=== PATIENT | female | born 1940 | race Caucasian/White ===

== ENCOUNTER 2018-04-08 20:20 | Emergency (ER) | payer MEDICARE ==
[2018-04-08 22:02] LABS: ABS Basophils 0.2 10^3/ul (0-0.2); ABS Eosinophils 0.1 10^3/ul (0-0.6); ABS Lymphocytes 1.8 10^3/ul (1.0-4.8); ABS Monocytes 1.4 10^3/ul (0-0.8); ABS Neutrophils 10.4 10^3/ul (1.5-7.7); ABS Nucleated RBC 0 10^3/ul; Eosinophil % 0.8 % (0-6); Hematocrit 31 % (35-47); Hemoglobin 10.2 g/dl (12.0-16.0); Lymphocyte % 12.9 % (25-47); Mean Corpuscular HGB Conc 33 g/dl (31-36); Mean Corpuscular Hemoglobin 28 pg (27-31); Mean Corpuscular Volume 84 fL (80-97); Mean Platelet Volume 6.6 um3 (7.4-10.4); Nucleated Red Blood Cells % 0; Platelet Count 676 10^3/ul (150-450); Red Blood Count 3.67 10^6/ul (4.00-5.40); Red Cell Distribution Width 14 % (10.5-15); White Blood Count 13.8 10^3/ul (3.5-10.8)
[2018-04-08] MEDS ORDERED: Ketorolac INJ* 30 MG/ML 1 ML VIAL IV PUSH ONE (22:16)
[2018-04-08] MEDS ORDERED: Ondansetron INJ* 2 MG/ML VIAL IV ONE (22:17)
[2018-04-08 22:21] LABS: EGFR Non-African American 15.4 (>60)
[2018-04-08 22:55] LABS: Urine Appearance Cloudy; Urine Blood 1+ (Negative); Urine Color Straw; Urine Ketones Negative (Negative); Urine Protein Negative (Negative); Urine Red Blood Cell Trace(0-2/hpf) (Absent); Urine Specific Gravity 1.005 (1.010-1.030); Urine Urobilinogen Negative (Negative); Urine White Blood Cell 3+(>20/hpf) (Absent)
[2018-04-08] MEDS ORDERED: Morphine VIAL* 4 MG/ML VIAL (1 ml vial) IV ONE ×2 (22:56→23:46)
[2018-04-08] MEDS ORDERED: NS 0.9% 1000 ML* 1,000 ML IV ONE (22:56)
[2018-04-08] MEDS ORDERED: cefTRIAXone(*) 1 GM in NS 0.9% 50 ML* 50 ML IVPB ONE (22:57)
[2018-04-08] MEDS ORDERED: Morphine INJ* 2 MG/ML 1 ML SYRINGE (TWO MG - NEW SYRINGE VERSION) IV ONE (23:00)
[2018-04-08] MEDS ORDERED: Morphine INJ* 2 MG/ML 1 ML SYRINGE (TWO MG - NEW SYRINGE VERSION) ONE (23:02)
--- NOTE | 2018-04-08 23:44 | ED ---
GI/ HPI - HPI Summary HPI Summary: 77-year-old female presents with right flank pain for the past week. She denies any injury. No fevers. She denies any saddle anesthesia or loss of bowel or bladder. States pain radiates from right flank down to her lower abdomen or pelvic region. She denies any dysuria, urgency, frequency. She admits to occasional nausea but denies any vomiting. She denies any diarrhea constipation. No hematuria. She denies any history of pyelonephritis or kidney stones. She denies any previous abdominal surgeries. She denies any chest pain or shortness of breath. - History of Current Complaint Chief Complaint: EDFlankPain Time Seen by Provider: 04/08/18 22:12 Stated Complaint: RT FLANK & ABD PAIN Pain Intensity: 10 - Allergy/Home Medications Allergies/Adverse Reactions: Allergies Allergy/AdvReac Type Severity Reaction Status Date / Time codeine Allergy Headache Verified 04/08/18 20:26 Home Medications: Home Medications Pravastatin (NF) [Pravachol (NF)] 40 mg PO DAILY 04/08/18 [History Confirmed ] Tiotropium CAP.INH* [Spiriva CAP.INH*] 1 cap.inh INH DAILY 04/08/18 [History Confirmed 04/08/18] PMH/Surg Hx/FS Hx/Imm Hx Endocrine/Hematology History: Denies: Hx Diabetes, Hx Thyroid Disease, Hx Anemia Cardiovascular History: Reports: Hx Coronary Artery Disease, Hx Hypertension, Other Cardiovascular Problems/Disorders - CAD Respiratory History: Reports: Hx Asthma - uses nebulizer tx/mdi as needed, Hx Chronic Obstructive Pulmonary Disease (COPD) GI History: Denies: Hx Jaundice, Hx Ulcer Musculoskeletal History: Reports: Hx Arthritis - GENERALIZED ALL OVER, Other Musculoskeletal History - LEFT LEG BONE PAIN FOR ABOUT TWO WEEKS NOW Denies: Hx Osteoporosis Comment Only: Hx Rheumatoid Arthritis - OA Sensory History: Reports: Hx Contacts or Glasses - glasses Denies: Hx Cataracts, Hx Hearing Aid Opthamlomology History: Reports: Hx Contacts or Glasses - glasses Denies: Hx Cataracts Neurological History: Reports: Hx Migraine - ON MEDS LAST ON LAST WEEK FOR 2 DAYS - Cancer History Hx Chemotherapy: No Hx Radiation Therapy: No - Surgical History Surgery Procedure, Year, and Place: LEFT KNEE REPLACEMENT 2014. lipoma removed from left arm and right leg 2017. appendectomy. gall bladder removed. hysterectomy Hx Anesthesia Reactions: Yes - very sick to stomach with anesthesia Infectious Disease History: No Infectious Disease History: Denies: Hx Hepatitis, Hx Human Immunodeficiency Virus (HIV), Traveled Outside the [place] in Last 30 Days - Family History Known Family History: Positive: Hypertension - Social History Alcohol Use: Occasionally Substance Use Type: Reports: None Smoking Status (MU): Former Smoker Amount Used/How Often: 30 years 2 ppd Review of Systems Negative: Fever Negative: Chest Pain Negative: Shortness Of Breath Positive: Abdominal Pain, Vomiting, Nausea. Negative: Diarrhea Positive: flank pain All Other Systems Reviewed And Are Negative: Yes Physical Exam Triage Information Reviewed: Yes Vital Signs On Initial Exam: Initial Vitals Temp Pulse Resp BP Pulse Ox 99.0 F 110 16 158/68 97 04/08/18 20:23 04/08/18 20:23 04/08/18 20:23 04/08/18 20:23 04/08/18 20:23 Vital Signs Reviewed: Yes Appearance: Positive: Well-Appearing Skin: Positive: Warm, Dry Head/Face: Positive: Normal Head/Face Inspection Eyes: Positive: Normal, Conjunctiva Clear ENT: Positive: Pharynx normal Respiratory/Lung Sounds: Positive: Clear to Auscultation, Breath Sounds Present Cardiovascular: Positive: Normal, RRR Abdomen Description: Positive: Soft, CVA Tenderness (R), Other: - tenderness right side abd Bowel Sounds: Positive: Present Musculoskeletal: Positive: Normal Neurological: Positive: Normal Psychiatric: Positive: Normal Diagnostics - Vital Signs Vital Signs Temp Pulse Resp BP Pulse Ox 04/08/18 23:11 16 04/08/18 20:23 99.0 F 110 16 158/68 97 - Laboratory Lab Results: Lab Results 04/08/18 04/08/18 04/08/18 Range/Units 21:46 21:46 21:46 WBC 13.8 H (3.5-10.8) 10^3/ul RBC 3.67 L (4.00-5.40) 10^6/ul Hgb 10.2 L (12.0-16.0) g/dl Hct 31 L (35-47) % MCV 84 (80-97) fL MCH 28 (27-31) pg MCHC 33 (31-36) g/dl RDW 14 (10.5-15) % Plt Count 676 H (150-450) 10^3/ul MPV 6.6 L (7.4-10.4) um3 Neut % (Auto) 75.2 (38-83) % Lymph % (Auto) 12.9 L (25-47) % Graves % (Auto) 9.8 H (0-7) % Eos % (Auto) 0.8 (0-6) % Baso % (Auto) 1.3 (0-2) % Absolute Neuts (auto) 10.4 H (1.5-7.7) 10^3/ul Absolute Lymphs (auto) 1.8 (1.0-4.8) 10^3/ul Absolute Monos (auto) 1.4 H (0-0.8) 10^3/ul Absolute Eos (auto) 0.1 (0-0.6) 10^3/ul Absolute Basos (auto) 0.2 (0-0.2) 10^3/ul Absolute Nucleated RBC 0 10^3/ul Nucleated RBC % 0 Sodium 134 L (135-145) mmol/L Potassium 4.5 (3.5-5.0) mmol/L Chloride 99 L (101-111) mmol/L Carbon Dioxide 24 (22-32) mmol/L Anion Gap 11 (2-11) mmol/L BUN 29 H (6-24) mg/dL Creatinine 2.95 H (0.51-0.95) mg/dL Est GFR ( Amer) 18.7 (>60) Est GFR (Non-Af Amer) 15.4 (>60) BUN/Creatinine Ratio 9.8 (8-20) Glucose 120 H (70-100) mg/dL Lactic Acid 1.5 (0.5-2.0) mmol/L Calcium 9.5 (8.6-10.3) mg/dL Total Bilirubin 0.30 (0.2-1.0) mg/dL AST 9 L (13-39) U/L ALT 18 (7-52) U/L Alkaline Phosphatase 101 (34-104) U/L C-Reactive Protein 100.15 H (<8.01) mg/L Total Protein 7.3 (6.4-8.9) g/dL Albumin 3.8 (3.2-5.2) g/dL Globulin 3.5 (2-4) g/dL Albumin/Globulin Ratio 1.1 (1-3) Lipase 69 (11.0-82.0) U/L Urine Color Urine Appearance Urine pH (5-9) Ur Specific [place] (1.010-1.030) Urine Protein (Negative) Urine Ketones (Negative) Urine Blood (Negative) Urine Nitrate (Negative) Urine Bilirubin (Negative) Urine Urobilinogen (Negative) Ur Leukocyte Esterase (Negative) Urine WBC (Auto) (Absent) Urine RBC (Auto) (Absent) Ur Squamous Epith Cells (Absent) Urine Bacteria (Absent) Urine Glucose (Negative) 04/08/18 Range/Units 22:18 WBC (3.5-10.8) 10^3/ul RBC (4.00-5.40) 10^6/ul Hgb (12.0-16.0) g/dl Hct (35-47) % MCV (80-97) fL MCH (27-31) pg MCHC (31-36) g/dl RDW (10.5-15) % Plt Count (150-450) 10^3/ul MPV (7.4-10.4) um3 Neut % (Auto) (38-83) % Lymph % (Auto) (25-47) % Graves % (Auto) (0-7) % Eos % (Auto) (0-6) % Baso % (Auto) (0-2) % Absolute Neuts (auto) (1.5-7.7) 10^3/ul Absolute Lymphs (auto) (1.0-4.8) 10^3/ul Absolute Monos (auto) (0-0.8) 10^3/ul Absolute Eos (auto) (0-0.6) 10^3/ul Absolute Basos (auto) (0-0.2) 10^3/ul Absolute Nucleated RBC 10^3/ul Nucleated RBC % Sodium (135-145) mmol/L Potassium (3.5-5.0) mmol/L Chloride (101-111) mmol/L Carbon Dioxide (22-32) mmol/L Anion Gap (2-11) mmol/L BUN (6-24) mg/dL Creatinine (0.51-0.95) mg/dL Est GFR ( Amer) (>60) Est GFR (Non-Af Amer) (>60) BUN/Creatinine Ratio (8-20) Glucose (70-100) mg/dL Lactic Acid (0.5-2.0) mmol/L Calcium (8.6-10.3) mg/dL Total Bilirubin (0.2-1.0) mg/dL AST (13-39) U/L ALT (7-52) U/L Alkaline Phosphatase (34-104) U/L C-Reactive Protein (<8.01) mg/L Total Protein (6.4-8.9) g/dL Albumin (3.2-5.2) g/dL Globulin (2-4) g/dL Albumin/Globulin Ratio (1-3) Lipase (11.0-82.0) U/L Urine Color Straw Urine Appearance Cloudy Urine pH 5.0 (5-9) Ur Specific [place] 1.005 L (1.010-1.030) Urine Protein Negative (Negative) Urine Ketones Negative (Negative) Urine Blood 1+ A (Negative) Urine Nitrate Negative (Negative) Urine Bilirubin Negative (Negative) Urine Urobilinogen Negative (Negative) Ur Leukocyte Esterase 3+ A (Negative) Urine WBC (Auto) 3+(>20/hpf) A (Absent) Urine RBC (Auto) Trace(0-2/hpf) (Absent) Ur Squamous Epith Cells Present A (Absent) Urine Bacteria 1+ A (Absent) Urine Glucose Negative (Negative) Result Diagrams: 04/08/18 21:46 04/08/18 21:46 Lab Statement: Any lab studies that have been ordered have been reviewed, and results considered in the medical decision making process. - CT abd CT Interpretation: Positive (See Comments) - Minimal right hydronephrosis. no obstructive calculi CT Interpretation Completed By: Radiologist Re-Evaluation - Re-Evaluation First Eval Re-Evaluation Time: 00:45 Change: Improved Comment: feeling better after pain medication GIGU Course/Dx - Course Course Of Treatment: 77-year-old female presents with right flank pain for the past week. She denies any injury. No fevers. She denies any saddle anesthesia or loss of bowel or bladder. States pain radiates from right flank down to her lower abdomen or pelvic region. She denies any dysuria, urgency, frequency. She admits to occasional nausea but denies any vomiting. She denies any diarrhea constipation. No hematuria. She denies any history of pyelonephritis or kidney stones. She denies any previous abdominal surgeries. She denies any chest pain or shortness of breath. On exam tenderness of right flank. Right-sided abdominal tenderness. CT shows hydronephrosis. Urine shows uti. Lactic normal. wbc 14. vitals stable does not appear septic. cr and bun elevated compared to previous 2 years ago. gave some fluids. Discussed with patient and patient agrees will treat this outpatient at this time with augmentin. discussed if develops fevers or feels worst to return. will have follow up with primary about elevated Cr. placed on augmentin as can give with her Cr Cl. patient understand and agrees with plan. - Diagnoses Differential Diagnoses - Female: Pyelonephritis, Urinary Tract Infection, Ureteral Calculi Provider Diagnoses: Pyelonephritis Discharge - Sign-Out/Discharge Documenting (check all that apply): Patient Departure - Discharge Plan Condition: Good Disposition: HOME Prescriptions: Amoxicillin/Clavulanate TAB* [Augmentin TAB 500 mg*] 500 mg PO BID #20 tab Ondansetron ODT TAB* [Zofran 4 MG Odt TAB*] 4 mg PO Q6H PRN #8 tab.odt PRN Reason: Nausea oxyCODONE TAB* [Roxycodone TAB 5 mg*] 5 mg PO Q6H PRN #12 tab MDD 4 PRN Reason: Pain Patient Education Materials: Kidney Infection (ED) Referrals: Tee Toussaint MD [Primary Care Provider] - Additional Instructions: Take antibiotic twice a day for 10 days starting tonight drink plenty of water Take Tylenol every 6 hours as needed for pain, use oxycodone for extreme pain every 6 hours follow up with primary within 5 days Return to ED if develop vomiting, fever, or any new or worsening symptoms - Billing Disposition and Condition Condition: GOOD Disposition: Home
[2018-04-08] MEDS ORDERED: Morphine INJ* 2 MG/ML 1 ML CARPUJECT IV ONE (23:50)
[2018-04-09] MEDS ORDERED: O ndansetron ODT 4MG 2TAB PRPK 4 MG PAK PO ONE (01:02)
[2018-04-09 01:10] VITALS: BP 123/86
--- NOTE | 2018-04-09 07:48 | RAD ---
INDICATION: Right flank pain COMPARISON: None TECHNIQUE: Noncontrast axial source images were acquired from the level hemidiaphragms to the symphysis pubis as part of CT imaging for renal stone. Lung bases: The lung bases are clear. Liver: The liver is normal in size. Noncontrast imaging shows no evidence of a hepatic mass or ductal dilatation. Gallbladder: Cholecystectomy. Spleen: The spleen is normal in size. The noncontrast CT appearance is normal. Pancreas: Noncontrast imaging shows no pancreatic mass or ductal dilitation. Adrenal glands: No masses are identified. Kidneys/Bladder: There is a nonobstructive 2 mm upper pole left renal calculus. There is mild atrophy of left kidney. On the right there is minor right-sided hydronephrosis with perinephric stranding there is no CT evidence of right-sided urolithiasis. Adenopathy: There is no evidence of intraperitoneal or retroperitoneal adenopathy. Evaluation is limited without oral contrast. Fluid collections: There are no free or localized fluid collections. Vessels: The aorta and iliac vessels are normal in caliber. There are no significant atherosclerotic changes. The IVC appears normal Pelvic organs: There is hysterectomy. There is no adnexal mass GI tract: Evaluation of the bowel is limited without oral contrast. The stomach, small bowel, and lower GI tract appear grossly normal. There are no obstructive findings. There is no periappendiceal inflammatory change.. Soft tissues: No soft tissue abnormalities of the extraperitoneal abdomen or pelvis are identified. Osseous structures: There are no acute osseous findings. IMPRESSION: 1. Mild atrophy left kidney with no obstructive left-sided nephrolithiasis. 2. Mild right-sided hydronephrosis with perinephric stranding without identifiable right-sided urolithiasis. Consider recent passage of calculus versus infection. 3. Cystectomy. Hysterectomy.
--- NOTE | 2018-04-12 11:05 | PN ---
Progress Note - Progress Note Date of Service: 04/08/18 Note: Pt. was seen in ED 04/12/18 and dx with pyelonephritis. She was placed on Augmentin and dc home. Final urine culture today is growing e. coli resistant to PNC. I called and spoke with pt. today at 1100. She states that her pain is getting worse and she feels very weak today. Pt. notes she has had very poor oral intake. Advised pt. if symptoms are worsening she should return to ER for re-eval. and possible IV antibx and admission. Pt. states she will return to ER.
== END 2018-04-09 01:09 | disposition home or self-care (01) ==
LOC: ED 20:20
DX: N10 Acute pyelonephritis (principal); B96.20 Unspecified Escherichia coli [E. coli] as the cause of diseases classified elsewhere; Z16.11 Resistance to penicillins; J44.9 Chronic obstructive pulmonary disease, unspecified; G43.909 Migraine, unspecified, not intractable, without status migrainosus; Z88.5 Allergy status to narcotic agent; Z96.652 Presence of left artificial knee joint; Z90.710 Acquired absence of both cervix and uterus; Z90.49 Acquired absence of other specified parts of digestive tract; Z82.49 Family history of ischemic heart disease and other diseases of the circulatory system; Z87.891 Personal history of nicotine dependence
CPT/HCPCS: 36415; 74176; 80053; 81003; 81015; 83605; 83690; 85025; 86140; 87077; 87086; 87186; 96365; 96375; 96376; 99282; J0696; J1885; J2270; J2405

== ENCOUNTER 2018-04-12 12:15 | Inpatient (IN) | payer MEDICARE ==
[2018-04-12] MEDS ORDERED: Ondansetron INJ* 2 MG/ML VIAL IV ONE (12:33)
[2018-04-12] MEDS ORDERED: Ketorolac INJ* 30 MG/ML 1 ML VIAL IV ONE (12:33)
[2018-04-12] MEDS ORDERED: cefTRIAXone(*) 1 GM in NS 0.9% 50 ML* 50 ML IVPB ONE (12:33)
[2018-04-12] MEDS ORDERED: NS 0.9% 1000 ML* 1,000 ML IV ONE (12:33)
[2018-04-12] MEDS ORDERED: Ciprofloxacin 400MG IVPREMIX(* 400 MG/200 ML BAG IVPB ONE (12:36)
--- NOTE | 2018-04-12 12:40 | ED ---
GI/ HPI - HPI Summary HPI Summary: This is suzi Hernandez documenting for attending Artis Terry MD. Patient is a 77 y/o F w/ c/o lower back pain. Patient was here four days ago for the same pain and given medication. Before the initial visit, pain had been present for a week. On triage, it is noted that the patient states she received a call from the ED today to return as she was given the wrong medications. In the room, she notes that the prescribed medications have not helped and the pain medications she was given cause migraines. She reports lower back pain is worse than previously and rates it 10/10. She also notes fevers, chills, N/V, loss of appetite, and increased frequency of urination. Patient denies abdominal pain, diarrhea, and dysuria. On triage, nothing is reported to aggravate/alleviate Sx. Home medications and allergies reviewed. - History of Current Complaint Chief Complaint: EDUrogenitalProblems Time Seen by Provider: 04/12/18 12:28 Stated Complaint: RE-CHECK UTI Hx Obtained From: Patient Onset/Duration: Started Weeks Ago - last week, Worse Since Timing: Constant Severity: Moderate Current Severity: Severe Pain Intensity: 10 Location of Pain: Other - lower back Associated Signs and Symptoms: Positive: Back Pain - lower, Nausea, Vomiting, Fever, Change in Appetite - decreased appetite, Chills, Other: - higher frequency of urination. Negative: Diarrhea, Dysuria, Abdominal Pain Aggravating Factor(s): Nothing Alleviating Factor(s): Nothing - Allergy/Home Medications Allergies/Adverse Reactions: Allergies Allergy/AdvReac Type Severity Reaction Status Date / Time codeine Allergy Headache Verified 04/12/18 12:23 PMH/Surg Hx/FS Hx/Imm Hx Endocrine/Hematology History: Denies: Hx Diabetes, Hx Thyroid Disease, Hx Anemia Cardiovascular History: Reports: Hx Coronary Artery Disease, Hx Hypertension, Other Cardiovascular Problems/Disorders - CAD Respiratory History: Reports: Hx Asthma - uses nebulizer tx/mdi as needed, Hx Chronic Obstructive Pulmonary Disease (COPD) GI History: Denies: Hx Jaundice, Hx Ulcer Musculoskeletal History: Reports: Hx Arthritis - GENERALIZED ALL OVER, Hx Rheumatoid Arthritis - OA, Other Musculoskeletal History - LEFT LEG BONE PAIN FOR ABOUT TWO WEEKS NOW Denies: Hx Osteoporosis Sensory History: Reports: Hx Contacts or Glasses - glasses Denies: Hx Cataracts, Hx Hearing Aid Opthamlomology History: Reports: Hx Contacts or Glasses - glasses Denies: Hx Cataracts Neurological History: Reports: Hx Migraine - ON MEDS LAST ON LAST WEEK FOR 2 DAYS - Cancer History Hx Chemotherapy: No Hx Radiation Therapy: No - Surgical History Surgery Procedure, Year, and Place: LEFT KNEE REPLACEMENT 2015. lipoma removed from left arm and right leg 2017. appendectomy. gall bladder removed. hysterectomy Hx Anesthesia Reactions: Yes - very sick to stomach with anesthesia Infectious Disease History: Yes Infectious Disease History: Denies: Hx Hepatitis, Hx Human Immunodeficiency Virus (HIV), Traveled Outside the [place] in Last 30 Days - Family History Known Family History: Negative: Blood Disorder - Social History Alcohol Use: Occasionally Substance Use Type: Reports: None Smoking Status (MU): Former Smoker Amount Used/How Often: 30 years 2 ppd Review of Systems Positive: Fever, Chills Positive: Vomiting, Nausea, Other - decreased appetite . Negative: Abdominal Pain, Diarrhea Positive: frequency - increased frequency of urination . Negative: dysuria Positive: Other - lower back pain All Other Systems Reviewed And Are Negative: Yes Physical Exam - Summary Physical Exam Summary: VITAL SIGNS: Reviewed. GENERAL: Patient is a well-developed and nourished female who is lying comfortable in the stretcher. Patient is not in any acute respiratory distress. HEAD AND FACE: No signs of trauma. No ecchymosis, hematomas or skull depressions. No sinus tenderness. EYES: PERRLA, EOMI x 2, No injected conjunctiva, no nystagmus. EARS: Hearing grossly intact. Ear canals and tympanic membranes are within normal limits. MOUTH: Oropharynx within normal limits. NECK: Supple, trachea is midline, no adenopathy, no JVD, no carotid bruit, no c- spine tenderness, neck with full ROM. CHEST: Symmetric, no tenderness at palpation LUNGS: Clear to auscultation bilaterally. No wheezing or crackles. CVS: Regular rate and rhythm, S1 and S2 present, no murmurs or gallops appreciated. ABDOMEN: Soft, non-tender. No signs of distention. No rebound no guarding, and no masses palpated. Bowel sounds are normal. MUSCULOSKELETAL: Bilateral CVA tenderness; all else normal. EXTREMITIES: FROM in all major joints, no edema, no cyanosis or clubbing. NEURO: Alert and oriented x 3. No acute neurological deficits. Speech is normal and follows commands. SKIN: Dry and warm Triage Information Reviewed: Yes Vital Signs On Initial Exam: Initial Vitals Temp Pulse Resp BP Pulse Ox 97 F 82 18 144/88 99 04/12/18 12:19 04/12/18 12:19 04/12/18 12:19 04/12/18 12:19 04/12/18 12:19 Vital Signs Reviewed: Yes Diagnostics - Vital Signs Vital Signs Temp Pulse Resp BP Pulse Ox 04/12/18 12:19 97 F 82 18 144/88 99 - Laboratory Result Diagrams: 04/12/18 13:05 04/12/18 13:05 Lab Statement: Any lab studies that have been ordered have been reviewed, and results considered in the medical decision making process. Re-Evaluation - Re-Evaluation First Eval Re-Evaluation Time: 13:44 Change: Improved Comment: Patient is feeling better. Discussed findings and plan for admission to [facility] for further workup. Patient is agreeable with the plan. GIGU Course/Dx - Course Assessment/Plan: This patient is a 77-year-old female who presents to the emergency department with a chief complaint of worsening lower back pain, nausea , intermittent fevers. The patient was diagnosed on April 08 with pyelonephritis for which the patient was given Augmentin. She reports that she is taking his medications however the symptoms worsen. Abdominopelvic CT done on 04/08 18 impression: Mild atrophy of the left kidney with no obstructing left- sided nephrolithiasis. Mild right-sided hydronephrosis with perinephric stranding without identifiable right-sided urolithiasis. Consider recent passage of calculus versus infection. Cystectomy. Hysterectomy. Blood test results shows normocytic normochromic anemia with a hemoglobin of 9.6 and hematocrit of 29. Platelet count is 689. Sodium of 134, be on a 26, creatinine 3.01 which he has worsened since April 08. CRP is 62.6. Initially in the emergency department the patient was given IV fluids, the patient was given Rocephin. I did give 1 dose of Toradol before, I knew that the patient had renal failure. Therefore I will increase the IV fluids at this time. I discussed the case with Dr. Driscoll from urology and he recommends for the patient to get an ultrasound to assess kidneys and the urethral jets. I discussed the case with and Dr. Toussaint, care physician and he recommends for the patient to be admitted to hospitalist services. The patient is feeling better, I discussed my physical exam and findings with Dr. Goldman we will admit the patient to her services for further workup and management. - Diagnoses Provider Diagnoses: Pyelonephritis, Acute on chronic renal failure - Physician Notifications Discussed Care Of Patient With: Junie Goldman Time Discussed With Above Provider: 14:14 Instructed by Provider To: Other - Dr. Goldman was consulted at 14:14 with regards to the patient's case. She agrees to accept patient to the hospital. 14: 26 -- Dr. Terry discussed the patient's case with Dr. Driscoll. He recommends for the patient to get an ultrasound to assess kidneys and the urethral jets. 14 :45 -- Dr. Toussaint was consulted, recommends admission as well. Discharge - Sign-Out/Discharge Documenting (check all that apply): Patient Departure - Discharge Plan Condition: Fair Disposition: ADMITTED TO [facility] Referrals: Tee Toussaint MD [Primary Care Provider] -
[2018-04-12 13:20] LABS: ABS Basophils 0.1 10^3/ul (0-0.2); ABS Eosinophils 0.1 10^3/ul (0-0.6); ABS Lymphocytes 1.5 10^3/ul (1.0-4.8); ABS Monocytes 0.9 10^3/ul (0-0.8); ABS Neutrophils 5.4 10^3/ul (1.5-7.7); ABS Nucleated RBC 0 10^3/ul; Eosinophil % 0.8 % (0-6); Hematocrit 29 % (35-47); Hemoglobin 9.6 g/dl (12.0-16.0); Lymphocyte % 18.5 % (25-47); Mean Corpuscular HGB Conc 34 g/dl (31-36); Mean Corpuscular Hemoglobin 28 pg (27-31); Mean Corpuscular Volume 83 fL (80-97); Mean Platelet Volume 6.8 um3 (7.4-10.4); Nucleated Red Blood Cells % 0; Platelet Count 689 10^3/ul (150-450); Red Blood Count 3.44 10^6/ul (4.00-5.40); Red Cell Distribution Width 14 % (10.5-15); White Blood Count 7.9 10^3/ul (3.5-10.8)
[2018-04-12 13:46] LABS: EGFR Non-African American 15.1 (>60)
[2018-04-12 14:52] LABS: Urine Appearance Cloudy; Urine Blood 1+ (Negative); Urine Color Yellow; Urine Ketones Negative (Negative); Urine Protein 2+(100 mg/dL) (Negative); Urine Red Blood Cell Trace(0-2/hpf) (Absent); Urine Specific Gravity 1.008 (1.010-1.030); Urine Urobilinogen Negative (Negative); Urine White Blood Cell 2+(11-20/hpf) (Absent)
[2018-04-12] MEDS ORDERED: Ondansetron INJ* 2 MG/ML VIAL IV PRN (16:42)
[2018-04-12] MEDS ORDERED: Acetaminophen TAB* 325 MG PO PRN (16:42)
[2018-04-12] MEDS ORDERED: Ondansetron ODT TAB* 4 MG PO PRN (16:44)
[2018-04-12] MEDS ORDERED: oxyCODONE/Acetamin 5/325 MG* TAB PO PRN (16:49)
--- NOTE | 2018-04-12 17:08 | RAD ---
INDICATION: Hydronephrosis and pyelonephritis. COMPARISON: Comparison is made with a prior CT of the abdomen and pelvis from April 08, 2018. TECHNIQUE: Multiple real-time images of the kidneys were obtained. FINDINGS: The right kidney is normal in shape and echogenicity. The left kidney is small in size and increased in echogenicity with diffuse thinning of the cortex. The right kidney measured 10.1 x 4.0 x 4.9 cm and the left kidney measured 8.2 x 3.5 x 3.4 cm. No significant focal abnormality or hydronephrosis is seen. There were bilateral ureteral vesicle jets. IMPRESSION: 1. NO EVIDENCE FOR HYDRONEPHROSIS. 2. SMALL LEFT KIDNEY.
[2018-04-12] MEDS ORDERED: Albuterol 2.5 MG/3 ML NEB.SOL* (0.083%) INH PRN (17:27)
[2018-04-12] MEDS: Verapamil SR TAB* 240 MG PO SCH (17:55)
[2018-04-12] MEDS: cefTRIAXone(*) 1 GM in NS 0.9% 50 ML* 50 ML IVPB SCH (18:01)
[2018-04-12] MEDS: Amitriptyline TAB* 50 MG PO SCH (20:22)
[2018-04-12] MEDS: NS 0.9% 1000 ML* 1,000 ML IV SCH (20:35)
--- NOTE | 2018-04-12 21:44 | HP ---
CC: Dr. Tee Toussaint * ADMISSION HISTORY AND PHYSICAL: DATE OF ADMISSION: 04/12/18 PRIMARY CARE PROVIDER: Dr. Tee Toussaint. MY ATTENDING WHILE IN THE HOSPITAL: Dr. Junie Goldman.* (DICTATED BY TREY RAMÍREZ) CHIEF COMPLAINT: Right-sided flank pain x5 days. HISTORY OF PRESENT ILLNESS: Ms. Guzman is a 77-year-old female with past medical history significant for hypertension, hyperlipidemia, asthma, chronic kidney disease, and urinary tract infection 2 years ago requiring hospitalization, who presents to the emergency department on 04/08/18, with complaints of right-sided flank pain. The patient at that time had a urinalysis consistent with urinary tract infection and was started on Augmentin. The patient had a CT scan, which showed right-sided hydronephrosis without identifiable stone with perinephric stranding with concern for infection or new or passed stone. The patient was started on Augmentin and discharged from the emergency department. The patient since that time has had persistent pain in her right side with very poor appetite, objective fevers, and rigors along with nausea without vomiting. The patient was given a prescription for oxycodone, which she took and has a poor reaction to that with headache and nausea. The patient states that the pain in her side has subsided significantly at the time of evaluation, but before today it was 10/10 and radiated from her right back down into her groin and leg on that side. The patient has been drinking what she describes as plenty of water, but cannot quantify this. The patient also has been drinking cranberry juice. The patient has not had very much to eat in general. The patient has no UTIs between the time she was admitted in 2014 and now. The patient is not on any prophylactic therapy. The patient went to see her primary care doctor, Dr. Toussaint and was referred to Dr. Driscoll of Urology on Sunday and had an appointment for Sunday. The patient has no history of kidney stones. The patient has had no chest pain, shortness of breath, abdominal pain, diarrhea, jaundice. The patient previously took Percocet for her pain, which she had leftover from her knee surgery, which she states helped very much, but had no relief from the oxycodone. The patient's pain is currently well controlled in the emergency department. The patient has had no other symptoms of UTI such as dysuria, hematuria, pyuria, frequency, or retention. The patient in the emergency department was previously found to have a creatinine of 2.95 on 04/08/18, which has increased to 3.01 on 04/12/18. The patient's baseline creatinine appears to be around 1.6. The patient was being treated with Augmentin and her urine culture from 04/08/18 showed resistance to ampicillin and an ALEXIS to Augmentin of 8, which is borderline resistant for systemic infections. Due to this, the patient was instructed to return to the emergency department. The patient had a renal ultrasound, which showed bilateral ureteral jets, no hydronephrosis, but a small left kidney and we were asked to admit to the hospital for treatment of pyelonephritis as well as investigation in the patient's acute-on chronic kidney disease. PAST MEDICAL HISTORY: Hypertension, hyperlipidemia, asthma, migraine disorder, back pain due to arthritis, previous urinary tract infection, chronic kidney disease, baseline stage 3B. PAST SURGICAL HISTORY: Hand surgery x3, hysterectomy, oophorectomy, cholecystectomy, knee replacement, multiple knee surgeries bilaterally. MEDICATIONS: 1. Lisinopril 20 mg p.o. daily. 2. Elavil 50 mg p.o. daily. 3. Verapamil 240 mg p.o. daily. 4. Spiriva 18 mcg inhalation once daily. 5. Pravastatin 40 mg p.o. daily. 6. Flovent as needed, 1 puff inhalation 2 to 3 times a day. Medications from previous ER visit: 1. Oxycodone 5 mg p.o. q.6 hours as needed. 2. Zofran 4 mg p.o. q.6 hours as needed. 3. Augmentin 500 mg p.o. b.i.d. ALLERGIES: CODEINE. FAMILY HISTORY: The patient's mother and father both of CAD. The patient recently had a brother who of CA and had several other brothers of heart disease. The patient has strong history of hypertension in her family. SOCIAL HISTORY: The patient has over a 100 pack-year history of smoking and has recently been smoking intermittently only with drinking and recently began to drink more alcohol, but has recently cut back on that significantly as well. The patient denies any illicit drug use. 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 The patient is and has 2 children, both of whom are healthy. The patient would like her surrogate decision makers to be her , Oscar Guzman and her [id number], Desiree Quintanilla. REVIEW OF SYSTEMS: A 14-point review of systems was reviewed and is negative except as above in the HPI. PHYSICAL EXAMINATION GENERAL: The patient is a 77-year-old female, who appears stated age and sitting comfortably in bed. VITAL SIGNS: At the time of evaluation, temperature 97.0, pulse rate 72, respiratory rate 18, oxygen saturation 98% on room air, blood pressure 146/74. HEENT: Head normocephalic, atraumatic. Sclerae anicteric. No conjunctival injection. Nasal mucosa moist. Oral mucosa moist. No pharyngeal erythema, discharge, or exudate. NECK: Supple, nontender. No lymphadenopathy. No carotid bruits auscultated. No JVD. RESPIRATORY: Clear to auscultation bilaterally. No wheezes, rales, or rhonchi. Good air exchange bilaterally. CARDIAC: Regular rate and rhythm. No clicks, murmurs, gallops, or rubs. Pulses are 2+ in the bilateral dorsalis pedis, posterior tibialis, and radial areas. No bilateral lower extremity edema or calf tenderness noted. ABDOMEN: Soft, nontender, nondistended. Bowel sounds present and normoactive in all 4 quadrants. No hepatosplenomegaly. No abdominal bruits auscultated. No hepatojugular reflux. GENITOURINARY: No suprapubic or CVA tenderness. NEUROLOGIC: Cranial nerves II through XII intact. No focal deficits. Alert and oriented x3. PSYCHIATRIC: Pleasant and cooperative. SKIN: Clean, dry, intact. No rash. LABORATORY DATA: White blood cell count 7.9, hemoglobin 9.6, hematocrit 29, platelet count 689. Sodium 134, potassium 4.7, chloride 103, carbon dioxide 20 , anion gap 11, BUN 26, creatinine 3.01, glucose 100, lactic acid 1.2, calcium 9.1. Bilirubin 0.3, AST 15, ALT 19, alkaline phosphatase 99. CRP is 62.64, procalcitonin 0.2, total protein 7.1, albumin 3.6, globulin 3.5, lipase 32. Urine is yellow, cloudy, pH of 5.0, specific gravity 1.008, 2+ protein, negative ketones, 1+ blood, negative nitrite, 2+ leukocyte esterase, 2+ white blood cells, urine red blood cell count trace, urine squamous epithelial cells present, bacteria and glucose are absent. DIAGNOSTIC STUDIES: Renal ultrasound read as no evidence for hydronephrosis, small left kidney, bilateral ureterovesical jets. ASSESSMENT AND PLAN/IMPRESSION: Ms. Guzman is a 77-year-old female with past medical history significant for chronic kidney disease, hypertension, hyperlipidemia, as well as previous hospitalization for urinary tract infection , who has presented twice to the emergency department in the past 5 days for back pain and was treated with Augmentin orally, which has a borderline ALEXIS for the E. coli, which she grew and has severely decreased renal function, who will be admitted to the hospital for fluid resuscitation, investigation of cause of her acute-on chronic kidney disease and IV antibiotics for presumed ongoing pyelonephritis. 1. Right-sided pyelonephritis. The patient had a CT scan with significant perinephric stranding and mild hydronephrosis consistent with pyelonephritis. The patient was started on Augmentin, whose ALEXIS was 8, which is borderline, resistant to Augmentin. The bacterium was also resistant to ampicillin. The patient will be switched to ceftriaxone at this time. The patient will have pain controlled with Percocet, which she has previously handled well. The patient will be fluid resuscitated. The patient has blood cultures pending. The patient does not meet sepsis criteria. The patient received 1 L bolus of IV fluid in the emergency department and have fluids at 100 mL an hour thereafter. 2. Acute-on chronic kidney disease. The patient's creatinine is severely increased from where it was from her baseline, which is found 1.7. The patient will be given a trial of fluid resuscitation. The patient does not have obstruction. This case was discussed with the urologist, Dr. Iniguez, who states that this is unlikely to be obstructive uropathy. The patient is having poor oral intake related to her pain and nausea from her pyelonephritis. The patient likely has prerenal disease, however, her BUN to creatinine ratio is not elevated. A FENA is pending. The patient has protein and white blood cells in her urine. Possibility of nephritic syndrome should be entertained, though the patient has had no recent changes in antibiotics. Nephrology consultation as well as buffering of her acidosis should also be considered if her creatinine does not improve with fluids. 3. Hypertension. The patient's lisinopril will be discontinued in the setting of acute kidney injury. We will continue the patient's verapamil. 4. Hyperlipidemia. Continue pravastatin. 5. Asthma. Continue Spiriva. The patient takes Flovent as needed at home. This medication will not be continued in the hospital on an as needed basis. The patient will be started on albuterol as needed and this should be discussed with her primary care doctor. 6. FEN: The patient will have a heart-healthy diet without caffeine as well as fluids at 100 mL an hour as above. 7. DVT prophylaxis: The patient will have heparin subcu as well as SCDs. 8. Code status: The patient would like to be a full code. The patient would like her surrogate decision makers to be her , Oscar Guzman and her daughter-in- law, Desiree Quintanilla as above. 9. Disposition: The patient is admitted to observation. TIME SPENT: Approximately 60 minutes was spent on this admission, 30 of which was spent [id number] with the patient obtaining history and physical and discussing treatment plan. The plan was discussed with my attending, Dr. Junie Goldman, and she is in agreement. TREY RAMÍREZ [id number]/CPS #: [id number] MTDD
[2018-04-12] MEDS: Heparin VIAL(*) 5000 UNITS/ML VIAL (FIVE THOUSAND) SUBCUT SCH (22:11)
[2018-04-13] MEDS: Heparin VIAL(*) 5000 UNITS/ML VIAL (FIVE THOUSAND) SUBCUT SCH ×3 (05:17→21:37)
[2018-04-13 06:27] LABS: ABS Basophils 0 10^3/ul (0-0.2); ABS Eosinophils 0.1 10^3/ul (0-0.6); ABS Lymphocytes 1.3 10^3/ul (1.0-4.8); ABS Monocytes 0.9 10^3/ul (0-0.8); ABS Neutrophils 4.7 10^3/ul (1.5-7.7); ABS Nucleated RBC 0 10^3/ul; Eosinophil % 1.8 % (0-6); Hematocrit 26 % (35-47); Hemoglobin 8.7 g/dl (12.0-16.0); Lymphocyte % 18.1 % (25-47); Mean Corpuscular HGB Conc 33 g/dl (31-36); Mean Corpuscular Hemoglobin 28 pg (27-31); Mean Corpuscular Volume 84 fL (80-97); Mean Platelet Volume 6.2 um3 (7.4-10.4); Nucleated Red Blood Cells % 0; Platelet Count 589 10^3/ul (150-450); Red Blood Count 3.13 10^6/ul (4.00-5.40); Red Cell Distribution Width 14 % (10.5-15)
[2018-04-13 06:42] LABS: EGFR Non-African American 16.3 (>60)
[2018-04-13] MEDS ORDERED: Atorvastatin* 10 MG TAB PO SCH ×2 (09:00→18:00)
[2018-04-13] MEDS ORDERED: Spiriva Inhaler DEVICE* 1 EACH DEVICE INH ONE (09:00)
[2018-04-13] MEDS: NS 0.9% 1000 ML* 1,000 ML IV SCH (09:42)
--- NOTE | 2018-04-13 10:16 | PN ---
Subjective - Subjective Reason for Note: Progress Note History: I have reviewed Tee Guzman's presentation with the patient and also with the history and physical provided by TREY Mao. She presents with an episode of right pyelonephritis caused by E. coli, severe pain, dehydration and acute on chronic renal insufficiency. She came to the ED because of uncontrolled right flank and lower quadrant pain. This is now controlled. We also started her on parenteral ceftriaxone and water/electrolyte replacement. This morning she has very little residual pain. She is able to walk independently. She was hungry last night for the first time and ate a large dinner. She states she is voiding plenty of urine and does not have dysuria. She no longer has fevers, chills, rigors or sweats. Active Problems: Active Problems Acute renal failure (Acute) Anemia (Acute) D64.9 DVT prophylaxis (Acute 01/20/15) [id number] Full code status (Acute 01/20/15) Z78.9 Pyelonephritis due to Escherichia coli (Acute) N12, B96.20 Allergic asthma (Chronic) J45.909 Arthritis of both hands (Chronic) M19.90 Back pain (Chronic) M54.9 Chronic kidney disease, stage III (moderate) (Chronic) N18.3 Classical migraine (Chronic) G43.109 Contracture of palmar fascia (Dupuytren's) (Chronic) M72.0 HLD (hyperlipidemia) (Chronic) E78.5 HTN (hypertension) (Chronic) I10 Left renal atrophy (Chronic) N26.1 Current Medications: Current Medications Acetaminophen (Tylenol Tab*) 650 mg PO Q6H PRN PRN Reason: FEVER/PAIN Albuterol (Ventolin 2.5 Mg/3 Ml Neb.Ginger*) 2.5 mg INH Q6H PRN PRN Reason: SOB/WHEEZING Amitriptyline HCl (Elavil Tab*) 75 mg PO BEDTIME GEOVANNA Last Admin: 04/12/18 20:22 Dose: 75 mg Atorvastatin Calcium (Lipitor*) 10 mg PO DAILY GEOVANNA; Protocol Heparin Sodium (Porcine) (Heparin Vial(*)) 5,000 units SUBCUT Q8HR GEOVANNA Last Admin: 04/13/18 05:17 Dose: 5,000 units Ceftriaxone Sodium 1 gm/ (Sodium Chloride) 50 mls @ 200 mls/hr IVPB Q24H GEOVANNA Last Admin: 04/12/18 18:01 Dose: 200 mls/hr Sodium Chloride (Ns 0.9% 1000 Ml*) 1,000 mls @ 100 mls/hr IV PER RATE [facility] Last Admin: 04/13/18 09:42 Dose: 100 mls/hr Ondansetron HCl (Zofran Inj*) 4 mg IV Q6H PRN PRN Reason: NAUSEA Ondansetron HCl (Zofran Odt Tab*) 4 mg PO Q6H PRN PRN Reason: NAUSEA Oxycodone/Acetaminophen (Percocet 5/325 Tab*) 1 tab PO Q4H PRN PRN Reason: PAIN Tiotropium [place] (Spiriva Cap.Inh*) 1 cap INH DAILY [facility] Verapamil HCl (Calan Sr Tab*) 240 mg PO QPM [facility] Last Admin: 04/12/18 17:55 Dose: 240 mg - Review of Systems Constitutional Symptoms: No: Fever, Night Sweats Dermatology: Rash: No Pulmonary: Negative: Cough, Sputum, Respiratory Distress Cardiology: Negative: Chest Pain, Shortness of Breath, Palpitations, Swelling of Ankles Gastroenterology: Positive: Abdominal Pain Negative: Nausea, Vomiting, Anorexia, Constipation, Diarrhea Genital - Urinary: Positive: Polyuria Negative: Dysuria Neurology: Positive: Headache Home Medications: Home Medications Medication Instructions Recorded Confirmed Type Amitriptyline TAB* [Elavil TAB*] 75 mg PO BEDTIME 03/05/13 04/12/18 History Lisinopril TAB* [Prinivil TAB*] 20 mg PO BEDTIME 03/05/13 04/12/18 History Verapamil SR TAB* [Calan Sr TAB*] 240 mg PO QPM 08/12/13 04/12/18 History Pravastatin (NF) [Pravachol (NF)] 40 mg PO DAILY 04/08/18 04/12/18 History Tiotropium CAP.INH* [Spiriva 1 cap.inh INH DAILY 04/08/18 04/12/18 History CAP.INH*] Amoxicillin/Clavulanate TAB* 500 mg PO BID #20 tab 04/09/18 04/12/18 Rx [Augmentin TAB 500 mg*] Ondansetron ODT TAB* [Zofran 4 MG 4 mg PO Q6H PRN #8 tab.odt 04/09/18 04/12/18 Rx Odt TAB*] oxyCODONE TAB* [Roxycodone TAB 5 5 mg PO Q6H PRN #12 tab MDD 4 04/09/18 Rx mg*] Allergies: Allergies Allergy/AdvReac Type Severity Reaction Status Date / Time codeine Allergy Headache Verified 04/12/18 12:23 Objective - Vital Signs Vital Signs: Vital Signs 04/12/18 04/12/18 04/12/18 12:19 12:40 12:42 Temperature 97 F Pulse Rate 82 79 72 Respiratory 18 Rate Blood Pressure 144/88 140/79 (mmHg) O2 Sat by Pulse 99 99 98 Oximetry 04/12/18 04/12/18 04/12/18 12:44 13:09 13:13 Temperature Pulse Rate 76 74 75 Respiratory Rate Blood Pressure 144/85 142/72 (mmHg) O2 Sat by Pulse 99 96 95 Oximetry 04/12/18 04/12/18 04/12/18 13:43 14:00 14:13 Temperature Pulse Rate 67 67 68 Respiratory Rate Blood Pressure 145/71 148/86 (mmHg) O2 Sat by Pulse 96 98 97 Oximetry 04/12/18 04/12/18 04/12/18 14:43 15:00 15:13 Temperature Pulse Rate 69 73 70 Respiratory Rate Blood Pressure 130/95 156/70 (mmHg) O2 Sat by Pulse 98 89 90 Oximetry 04/12/18 04/12/18 04/12/18 15:43 16:00 16:13 Temperature Pulse Rate 71 72 68 Respiratory Rate Blood Pressure 136/75 136/72 (mmHg) O2 Sat by Pulse 98 94 97 Oximetry 04/12/18 04/12/18 04/12/18 16:43 17:00 17:14 Temperature Pulse Rate 73 72 71 Respiratory Rate Blood Pressure 146/74 147/70 (mmHg) O2 Sat by Pulse 96 98 96 Oximetry 04/12/18 04/12/18 04/12/18 17:22 17:49 17:50 Temperature 97.0 F 97.5 F Pulse Rate 71 78 77 Respiratory 19 14 Rate Blood Pressure 147/70 140/60 141/64 (mmHg) O2 Sat by Pulse 98 100 Oximetry 04/12/18 04/12/18 04/12/18 17:51 19:21 23:45 Temperature 97.6 F 97.9 F Pulse Rate 71 77 71 Respiratory 20 18 Rate Blood Pressure 139/66 141/64 116/61 (mmHg) O2 Sat by Pulse 95 96 Oximetry 04/13/18 04/13/18 04/13/18 00:12 00:24 02:59 Temperature 97.9 F 98.0 F Pulse Rate 77 71 78 Respiratory 14 18 18 Rate Blood Pressure 116/61 139/58 (mmHg) O2 Sat by Pulse 95 96 95 Oximetry - Intake and Output Intake and Output: Intake & Output 04/10/18 04/11/18 04/12/18 04/13/18 11:59 11:59 11:59 11:59 Intake Total 3821 Balance 3821 Weight 171 lb Intake: IV Fluids 2981 NS (0.9%) 781 Oral 840 Other: # Bowel Movements 0 # Voids 3 ADLs: Meal Record Start: 04/12/18 17: 40 Freq: DAILY@0900,1400,1800 Status: Active Protocol: Created 04/12/18 17:40 System (Rec: 04/12/18 17:40 System [id number]) Document 04/12/18 18:00 [id number] (Rec: 04/12/18 18:28 [id number] MED-C16) Document 04/13/18 09:00 [id number] (Rec: 04/13/18 09:44 [id number] MED-C11) Intake and Output Start: 04/12/18 12: 23 Freq: Status: Active Protocol: Created 04/12/18 12:23 System (Rec: 04/12/18 12:23 System [id number]) Intake and Output Start: 04/12/18 17: 40 Freq: DAILY@0600,1400,2200 Status: Active Protocol: Created 04/12/18 17:40 System (Rec: 04/12/18 17:40 System [id number]) Document 04/12/18 20:02 [id number] (Rec: 04/12/18 20:02 [id number] MED-C16) Document 04/13/18 06:00 [id number] (Rec: 04/13/18 07:04 [id number] MED-C11) - Physical Exam General Physical Exam Comment: She has bilateral Dupuytrens contracture. 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 She is warm and well perfused, hemodynamically stable General: No Cyanosis, Yes Anemia, No Jaundice, No Clubbing Eye Exam: bilateral: EOMI Skin: Normal: Rash Lungs and Chest: Yes: Chest Expansion Full, Percussion Note Resonant, Vessicular Breath Sounds. No: Crackles, Wheezes Heart Rate and Rhythm: Regular JVP: Not Elevated Additional Cardiovascular: Yes: Normal Heart Sounds. No: Heart Murmur, Pedal Edema Abdominal Exam: Yes: Soft, Abdominal Tenderness - right lower quadrant and renal angle, Bowel Sounds Present. No: Distention, Rigidity, Abdominal Mass, Hepatomegaly, Splenomegaly, Guarding, Rebound Tenderness - Extremities Cranial Nerves II-XII Intact: Yes Limbs: Normal Power, Normal Tone - Neuro Orientation: A/O x3 Speech: Normal Results - Results Lab Results: Laboratory Results - last 24 hr 04/12/18 04/12/18 04/12/18 13:05 13:05 13:05 WBC 7.9 RBC 3.44 L Hgb 9.6 L Hct 29 L MCV 83 MCH 28 MCHC 34 RDW 14 Plt Count 689 H MPV 6.8 L Neut % (Auto) 68.4 Lymph % (Auto) 18.5 L Quay % (Auto) 11.3 H Eos % (Auto) 0.8 Baso % (Auto) 1.0 Absolute Neuts (auto) 5.4 Absolute Lymphs (auto) 1.5 Absolute Monos (auto) 0.9 H Absolute Eos (auto) 0.1 Absolute Basos (auto) 0.1 Absolute Nucleated RBC 0 Nucleated RBC % 0 Sodium 134 L Potassium 4.7 Chloride 103 Carbon Dioxide 20 L Anion Gap 11 BUN 26 H Creatinine 3.01 H Est GFR ( Amer) 18.2 Est GFR (Non-Af Amer) 15.1 BUN/Creatinine Ratio 8.6 Glucose 100 Lactic Acid 1.2 Calcium 9.1 Magnesium Total Bilirubin 0.30 AST 15 ALT 19 Alkaline Phosphatase 99 C-Reactive Protein 62.64 H Total Protein 7.1 Albumin 3.6 Globulin 3.5 Albumin/Globulin Ratio 1.0 Lipase 32 Procalcitonin Urine Color Urine Appearance Urine pH Ur Specific [place] Urine Protein Urine Ketones Urine Blood Urine Nitrate Urine Bilirubin Urine Urobilinogen Ur Leukocyte Esterase Urine WBC (Auto) Urine RBC (Auto) Ur Squamous Epith Cells Urine Bacteria Ur Random Creatinine Ur Random Sodium Urine Glucose 04/12/18 04/12/18 04/12/18 13:05 14:21 17:47 WBC RBC Hgb Hct MCV MCH MCHC RDW Plt Count MPV Neut % (Auto) Lymph % (Auto) Quay % (Auto) Eos % (Auto) Baso % (Auto) Absolute Neuts (auto) Absolute Lymphs (auto) Absolute Monos (auto) Absolute Eos (auto) Absolute Basos (auto) Absolute Nucleated RBC Nucleated RBC % Sodium Potassium Chloride Carbon Dioxide Anion Gap BUN Creatinine Est GFR ( Amer) Est GFR (Non-Af Amer) BUN/Creatinine Ratio Glucose Lactic Acid 1.7 Calcium Magnesium Total Bilirubin AST ALT Alkaline Phosphatase C-Reactive Protein Total Protein Albumin Globulin Albumin/Globulin Ratio Lipase Procalcitonin 0.2 Urine Color Yellow Urine Appearance Cloudy Urine pH 5.0 Ur Specific [place] 1.008 L Urine Protein 2+(100 mg/dl) A Urine Ketones Negative Urine Blood 1+ A Urine Nitrate Negative Urine Bilirubin Negative Urine Urobilinogen Negative Ur Leukocyte Esterase 2+ A Urine WBC (Auto) 2+(11-20/hpf) A Urine RBC (Auto) Trace(0-2/hpf) Ur Squamous Epith Cells Present A Urine Bacteria Absent Ur Random Creatinine Ur Random Sodium Urine Glucose Negative 04/13/18 04/13/18 04/13/18 06:07 06:07 06:07 WBC 7.0 RBC 3.13 L Hgb 8.7 L Hct 26 L MCV 84 MCH 28 MCHC 33 RDW 14 Plt Count 589 H D MPV 6.2 L Neut % (Auto) 67.2 Lymph % (Auto) 18.1 L Quay % (Auto) 12.3 H Eos % (Auto) 1.8 Baso % (Auto) 0.6 Absolute Neuts (auto) 4.7 Absolute Lymphs (auto) 1.3 Absolute Monos (auto) 0.9 H Absolute Eos (auto) 0.1 Absolute Basos (auto) 0 Absolute Nucleated RBC 0 Nucleated RBC % 0 Sodium 136 Potassium 4.7 Chloride 108 Carbon Dioxide 21 L Anion Gap 7 BUN 25 H Creatinine 2.81 H Est GFR ( Amer) 19.7 Est GFR (Non-Af Amer) 16.3 BUN/Creatinine Ratio 8.9 Glucose 85 Lactic Acid Calcium 8.3 L Magnesium 1.7 L Total Bilirubin AST ALT Alkaline Phosphatase C-Reactive Protein Total Protein Albumin Globulin Albumin/Globulin Ratio Lipase Procalcitonin 0.1 Urine Color Urine Appearance Urine pH Ur Specific [place] Urine Protein Urine Ketones Urine Blood Urine Nitrate Urine Bilirubin Urine Urobilinogen Ur Leukocyte Esterase Urine WBC (Auto) Urine RBC (Auto) Ur Squamous Epith Cells Urine Bacteria Ur Random Creatinine Ur Random Sodium Urine Glucose 04/13/18 09:24 WBC RBC Hgb Hct MCV MCH MCHC RDW Plt Count MPV Neut % (Auto) Lymph % (Auto) Quay % (Auto) Eos % (Auto) Baso % (Auto) Absolute Neuts (auto) Absolute Lymphs (auto) Absolute Monos (auto) Absolute Eos (auto) Absolute Basos (auto) Absolute Nucleated RBC Nucleated RBC % Sodium Potassium Chloride Carbon Dioxide Anion Gap BUN Creatinine Est GFR ( Amer) Est GFR (Non-Af Amer) BUN/Creatinine Ratio Glucose Lactic Acid Calcium Magnesium Total Bilirubin AST ALT Alkaline Phosphatase C-Reactive Protein Total Protein Albumin Globulin Albumin/Globulin Ratio Lipase Procalcitonin Urine Color Urine Appearance Urine pH Ur Specific [place] Urine Protein Urine Ketones Urine Blood Urine Nitrate Urine Bilirubin Urine Urobilinogen Ur Leukocyte Esterase Urine WBC (Auto) Urine RBC (Auto) Ur Squamous Epith Cells Urine Bacteria Ur Random Creatinine 41.67 Ur Random Sodium 49 Urine Glucose Radiology Results: Patient Name: TEE GUZMAN Medical Record#: [id number] Ordering Physician: Artis Terry MD Acct.#: [id number] : 1940 Age: 77 Sex: F Location: EMERGENCY DEPARTMENT Exam Date: 04/12/18 142 ADM Status: [facility] ER Order Information: US RENAL COMPLETE Accession Number: [id number] CPT: 97425 INDICATION: Hydronephrosis and pyelonephritis. COMPARISON: Comparison is made with a prior CT of the abdomen and pelvis from April 08, 2018. TECHNIQUE: Multiple real-time images of the kidneys were obtained. FINDINGS: The right kidney is normal in shape and echogenicity. The left kidney is small in size and increased in echogenicity with diffuse thinning of the cortex. The right kidney measured 10.1 x 4.0 x 4.9 cm and the left kidney measured 8.2 x 3.5 x 3.4 cm. No significant focal abnormality or hydronephrosis is seen. There were bilateral ureteral vesicle jets. IMPRESSION: 1. NO EVIDENCE FOR HYDRONEPHROSIS. 2. SMALL LEFT KIDNEY. <Electronically signed by Amador Hines MD in [place]> 04/12/181704 Dictated By: Amador Hines MD Dictated Date/Time: 04/12/181704 Transcribed Date/Time: 04/12/181700 Copy to: CC:Tee Toussaint MD; Artis Terry MD Imaging - [facility] Imaging - [facility] Imaging - [facility] [address] [facility] [address] ph ([phone]) ph ([phone]) ph ([phone]) This report is only to be considered final once signed by the Provider(s) as displayed in the "<Electronically Signed by >" field (s). Absence of a signature indicates the report is in a draft status and still needs to be finalized. In the event this document was created by someone other than the signing Provider, the individual initiating the document will be listed in the "Entered by:" or "Dictated by:" werner. 1 of 1 Assessment - Problem List Assessment: Patient Problems Acute renal failure (Acute) Anemia (Acute) DVT prophylaxis (Acute 01/20/15) Full code status (Acute 01/20/15) Pyelonephritis due to Escherichia coli (Acute) Allergic asthma (Chronic) Arthritis of both hands (Chronic) Back pain (Chronic) Chronic kidney disease, stage III (moderate) (Chronic) Classical migraine (Chronic) Contracture of palmar fascia (Dupuytren's) (Chronic) HLD (hyperlipidemia) (Chronic) HTN (hypertension) (Chronic) Left renal atrophy (Chronic) Plan: Pyelonephritis due to Escherichia coli (Acute) Acute renal failure (Acute) Left renal atrophy (Chronic)Chronic kidney disease, stage III (moderate) (Chronic) She developed right sided pyelonephritis and failed outpatient management. Her WBC, neut% were not elevated at admission (WBC 13.8% on 04/08/2018) and her CRP is not especially high (though elevated) and it had come down from 100 to 63 since her ED visit on 04/08/18. I think this will be treated effectively by another day or two of ceftriaxone IV. She also developed acute on chronic renal insufficiency. She is currently receiving IVF. She is now eating and drinking. I can't see a measurement of urine output in the electronic chart - but by self report she is urinating. Her creatinine is recovering. I want to ensure she is volume replaced - I will maintain some IVF for another 24 hours. I will not use diuretics at this stage - I anticipate she will have a spontaneous diuresis when her kidneys recover from acute injury due to hypovolemia/pyolnephritis. I note her left kidney is shrunken and likely not functional. The right kidney is injured. I wonder if her left kidney had renal artery stenosis. She has had ad terminal makeup operator CKD - this may be caused by hypertension. I will evaluate this as an outpatient. Anemia: This is acute on chronic. Most likely this relates to both an acute phase response from the infection. She may have chronic anemia of renal disease. I will check other causes of anemia to not take them for granted - clearly ferritin will be elevated due to an acute phase response. She doesn't require any particular treatment DVT prophylaxis (Acute 01/20/15) Full code status (Acute 01/20/15) Allergic asthma (Chronic) secondary diagnosis Arthritis of both hands (Chronic) she denies NSAID over-use which is a potential cause of her renal insufficiency Back pain (Chronic) secondary diagnosis Classical migraine (Chronic) She has a headache today, but no neck stiffness or photophobia Contracture of palmar fascia (Dupuytren's) (Chronic) HLD (hyperlipidemia) (Chronic) secondary diagnosis HTN (hypertension) (Chronic) secondary diagnosis I discussed the above in detail with the patient and answered questions.
[2018-04-13] MEDS: Tiotropium CAP.INH* CAP.INH/18 MCG (USE ORDER SET !) INH SCH ×2 (10:20→14:58)
[2018-04-13] MEDS ORDERED: NS 0.9% 1000 ML* 1,000 ML IV SCH (10:31)
[2018-04-13] MEDS: cefTRIAXone(*) 1 GM in NS 0.9% 50 ML* 50 ML IVPB SCH (17:36)
[2018-04-13] MEDS: Verapamil SR TAB* 240 MG PO SCH (17:36)
[2018-04-13] MEDS: Amitriptyline TAB* 50 MG PO SCH (20:50)
[2018-04-14] MEDS: Heparin VIAL(*) 5000 UNITS/ML VIAL (FIVE THOUSAND) SUBCUT SCH (05:40)
[2018-04-14 06:59] LABS: ABS Basophils 0 10^3/ul (0-0.2); ABS Eosinophils 0.1 10^3/ul (0-0.6); ABS Lymphocytes 1.7 10^3/ul (1.0-4.8); ABS Monocytes 0.8 10^3/ul (0-0.8); ABS Neutrophils 5.2 10^3/ul (1.5-7.7); ABS Nucleated RBC 0 10^3/ul; Eosinophil % 1.7 % (0-6); Hematocrit 25 % (35-47); Hemoglobin 8.5 g/dl (12.0-16.0); Lymphocyte % 21.3 % (25-47); Mean Corpuscular HGB Conc 34 g/dl (31-36); Mean Corpuscular Hemoglobin 28 pg (27-31); Mean Corpuscular Volume 83 fL (80-97); Mean Platelet Volume 6.7 um3 (7.4-10.4); Nucleated Red Blood Cells % 0.1; Platelet Count 524 10^3/ul (150-450); Red Blood Count 3.03 10^6/ul (4.00-5.40); Red Cell Distribution Width 14 % (10.5-15); White Blood Count 7.8 10^3/ul (3.5-10.8)
[2018-04-14 07:11] LABS: EGFR Non-African American 17.2 (>60)
[2018-04-14 07:24] VITALS: BP 120/62
[2018-04-14] MEDS: Tiotropium CAP.INH* CAP.INH/18 MCG (USE ORDER SET !) INH SCH (09:34)
--- NOTE | 2018-04-14 10:31 | PN ---
Subjective - Subjective Reason for Note: Discharge Note History: She is better today. She has no flank pain. Her appetite is good. She is ready to go home Active Problems: Active Problems Acute renal failure (Acute) Anemia (Acute) D64.9 DVT prophylaxis (Acute 01/20/15) [id number] Full code status (Acute 01/20/15) Z78.9 Pyelonephritis due to Escherichia coli (Acute) N12, B96.20 Allergic asthma (Chronic) J45.909 Arthritis of both hands (Chronic) M19.90 Back pain (Chronic) M54.9 Chronic kidney disease, stage III (moderate) (Chronic) N18.3 Classical migraine (Chronic) G43.109 Contracture of palmar fascia (Dupuytren's) (Chronic) M72.0 HLD (hyperlipidemia) (Chronic) E78.5 HTN (hypertension) (Chronic) I10 Left renal atrophy (Chronic) N26.1 Current Medications: Current Medications Acetaminophen (Tylenol Tab*) 650 mg PO Q6H PRN PRN Reason: FEVER/PAIN Last Admin: 04/13/18 15:38 Dose: 650 mg Albuterol (Ventolin 2.5 Mg/3 Ml Neb.Ginger*) 2.5 mg INH Q6H PRN PRN Reason: SOB/WHEEZING Amitriptyline HCl (Elavil Tab*) 75 mg PO BEDTIME [facility] Last Admin: 04/13/18 20:50 Dose: 75 mg Atorvastatin Calcium (Lipitor*) 10 mg PO 1800 GEOVANNA; Protocol Last Admin: 04/13/18 17:36 Dose: 10 mg Heparin Sodium (Porcine) (Heparin Vial(*)) 5,000 units SUBCUT Q8HR [facility] Last Admin: 04/14/18 05:40 Dose: 5,000 units Ceftriaxone Sodium 1 gm/ (Sodium Chloride) 50 mls @ 200 mls/hr IVPB Q24H GEOVANNA Last Admin: 04/13/18 17:36 Dose: 200 mls/hr Sodium Chloride (Ns 0.9% 1000 Ml*) 1,000 mls @ 70 mls/hr IV PER RATE [facility] Last Admin: 04/13/18 23:45 Dose: 70 mls/hr Ondansetron HCl (Zofran Inj*) 4 mg IV Q6H PRN PRN Reason: NAUSEA Ondansetron HCl (Zofran Odt Tab*) 4 mg PO Q6H PRN PRN Reason: NAUSEA Oxycodone/Acetaminophen (Percocet 5/325 Tab*) 1 tab PO Q4H PRN PRN Reason: PAIN Tiotropium [facility] (Spiriva Cap.Inh*) 1 cap INH DAILY [facility] Last Admin: 04/14/18 09:34 Dose: 1 inh Verapamil HCl (Calan Sr Tab*) 240 mg PO QPM [facility] Last Admin: 04/13/18 17:36 Dose: 240 mg Home Medications: Home Medications Medication Instructions Recorded Confirmed Type Amitriptyline TAB* [Elavil TAB*] 75 mg PO BEDTIME 03/05/13 04/12/18 History Lisinopril TAB* [Prinivil TAB*] 20 mg PO BEDTIME 03/05/13 04/12/18 History Verapamil SR TAB* [Calan Sr TAB*] 240 mg PO QPM 08/12/13 04/12/18 History Pravastatin (NF) [Pravachol (NF)] 40 mg PO DAILY 04/08/18 04/12/18 History Tiotropium CAP.INH* [Spiriva 1 cap.inh INH DAILY 04/08/18 04/12/18 History CAP.INH*] Amoxicillin/Clavulanate TAB* 500 mg PO BID #20 tab 04/09/18 04/12/18 Rx [Augmentin TAB 500 mg*] Ondansetron ODT TAB* [Zofran 4 MG 4 mg PO Q6H PRN #8 tab.odt 04/09/18 04/12/18 Rx Odt TAB*] oxyCODONE TAB* [Roxycodone TAB 5 5 mg PO Q6H PRN #12 tab MDD 4 04/09/18 Rx mg*] Allergies: Allergies Allergy/AdvReac Type Severity Reaction Status Date / Time codeine Allergy Headache Verified 04/12/18 12:23 Objective - Vital Signs Vital Signs: Vital Signs 04/13/18 04/13/18 04/13/18 11:02 15:21 18:48 Temperature 98.2 F 97.6 F 98.1 F Pulse Rate 78 77 85 Respiratory 19 18 22 Rate Blood Pressure 142/71 141/67 133/82 (mmHg) O2 Sat by Pulse 96 97 100 Oximetry 04/13/18 04/13/18 04/13/18 20:00 23:10 23:11 Temperature 98.2 F Pulse Rate 72 Respiratory 18 16 Rate Blood Pressure 124/61 (mmHg) O2 Sat by Pulse 84 97 Oximetry 04/14/18 04/14/18 04/14/18 02:58 07:13 09:30 Temperature 98.2 F 97.8 F Pulse Rate 73 56 84 Respiratory 16 16 Rate Blood Pressure 119/62 120/62 (mmHg) O2 Sat by Pulse 93 92 Oximetry - Intake and Output Intake and Output: Intake & Output 04/11/18 04/12/18 04/13/18 04/14/18 11:59 11:59 11:59 11:59 Intake Total 3821 3798 Output Total 0 Balance 3821 3798 Weight 171 lb 179 lb 14.4 oz Intake: IV Fluids 2981 1678 NS (0.9%) 781 1678 Oral 840 2120 Output: Urine 0 Other: Estimated Void Medium Date of Last Bowel unknown Movement # Bowel Movements 0 0 # Voids 3 1 ADLs: Meal Record Start: 04/12/18 17: 40 Freq: DAILY@0900,1400,1800 Status: Active Protocol: Created 04/12/18 17:40 System (Rec: 04/12/18 17:40 System [id number]) Document 04/12/18 18:00 [id number] (Rec: 04/12/18 18:28 [id number] MED-C16) Document 04/13/18 09:00 [id number] (Rec: 04/13/18 09:44 [id number] MED-C11) Document 04/13/18 14:00 [id number] (Rec: 04/13/18 14:04 [id number] MED-C11) Document 04/13/18 18:00 [id number] (Rec: 04/13/18 18:03 [id number] MED-C14) Intake and Output Start: 04/12/18 12: 23 Freq: Status: Active Protocol: Created 04/12/18 12:23 System (Rec: 04/12/18 12:23 System [id number]) Intake and Output Start: 04/12/18 17: 40 Freq: DAILY@0600,1400,2200 Status: Active Protocol: Created 04/12/18 17:40 System (Rec: 04/12/18 17:40 System [id number]-C01) Document 04/12/18 20:02 [id number] (Rec: 04/12/18 20:02 [id number] MED-C16) Document 04/13/18 06:00 [id number] (Rec: 04/13/18 07:04 [id number] MED-C11) Document 04/13/18 14:00 [id number] (Rec: 04/13/18 14:04 [id number] MED-C11) Document 04/13/18 19:59 [id number] (Rec: 04/13/18 20:01 [id number] MED-C14) Document 04/13/18 20:52 [id number] (Rec: 04/13/18 20:52 [id number] MED-M01) Document 04/14/18 01:19 [id number] (Rec: 04/14/18 01:19 [id number] MED-C11) - Physical Exam General: No Cyanosis, Yes Anemia, No Jaundice, No Clubbing Lungs and Chest: Yes: Chest Expansion Full, Chest Expansion Symetrica, Percussion Note Resonant, Vessicular Breath Sounds. No: Crackles, Wheezes Heart Rate and Rhythm: Regular Additional Cardiovascular: Yes: Normal Heart Sounds. No: Heart Murmur, Pedal Edema Abdominal Exam: Yes: Soft, Bowel Sounds Present. No: Distention, Abdominal Mass , Abdominal Tenderness Results - Results Lab Results: Laboratory Results - last 24 hr 04/13/18 04/13/18 04/14/18 11:13 11:13 06:15 WBC RBC Hgb Hct MCV MCH MCHC RDW Plt Count MPV Neut % (Auto) Lymph % (Auto) [place] % (Auto) Eos % (Auto) Baso % (Auto) Absolute Neuts (auto) Absolute Lymphs (auto) Absolute Monos (auto) Absolute Eos (auto) Absolute Basos (auto) Absolute Nucleated RBC Nucleated RBC % Sodium 139 Potassium 4.7 Chloride 111 Carbon Dioxide 21 L Anion Gap 7 BUN 23 Creatinine 2.68 H Est GFR ( Amer) 20.9 Est GFR (Non-Af Amer) 17.2 BUN/Creatinine Ratio 8.6 Glucose 88 Calcium 8.6 Iron 34 L TIBC 253 % Saturation 13 L Unsat Iron Binding 219 Transferrin 181 L Total Bilirubin 0.20 Direct Bilirubin 0.00 L Indirect Bilirubin Training Personnel Supervisor AST 16 ALT 21 Alkaline Phosphatase 93 C-Reactive Protein 32.33 H Total Protein 6.1 L Albumin 3.2 Globulin 2.9 Albumin/Globulin Ratio 1.1 Vitamin B12 295 Folate 15.98 04/14/18 06:16 WBC 7.8 RBC 3.03 L Hgb 8.5 L Hct 25 L MCV 83 MCH 28 MCHC 34 RDW 14 Plt Count 524 H D MPV 6.7 L Neut % (Auto) 66.7 Lymph % (Auto) 21.3 L [place] % (Auto) 9.7 H Eos % (Auto) 1.7 Baso % (Auto) 0.6 Absolute Neuts (auto) 5.2 Absolute Lymphs (auto) 1.7 Absolute Monos (auto) 0.8 Absolute Eos (auto) 0.1 Absolute Basos (auto) 0 Absolute Nucleated RBC 0 Nucleated RBC % 0.1 Sodium Potassium Chloride Carbon Dioxide Anion Gap BUN Creatinine Est GFR ( Amer) Est GFR (Non-Af Amer) BUN/Creatinine Ratio Glucose Calcium Iron TIBC % Saturation Unsat Iron Binding Transferrin Total Bilirubin Direct Bilirubin Indirect Bilirubin AST ALT Alkaline Phosphatase C-Reactive Protein Total Protein Albumin Globulin Albumin/Globulin Ratio Vitamin B12 Folate Assessment - Problem List Assessment: Patient Problems Acute renal failure (Acute) Anemia (Acute) DVT prophylaxis (Acute 01/20/15) Full code status (Acute 01/20/15) Pyelonephritis due to Escherichia coli (Acute) Allergic asthma (Chronic) Arthritis of both hands (Chronic) Back pain (Chronic) Chronic kidney disease, stage III (moderate) (Chronic) Classical migraine (Chronic) Contracture of palmar fascia (Dupuytren's) (Chronic) HLD (hyperlipidemia) (Chronic) HTN (hypertension) (Chronic) Left renal atrophy (Chronic) Plan: She is recovering nicely from her infection. I will continue her on a few more days of antibacterials as an outpatient - cefdinir 300 mg bid for 5 days. She is anemic - this is likely a combination of an acute phase response and the anemia of chronic disease as the iron, transferrin and TIBC are low. But since the transferrin saturation is low, there may be a component of iron deficiency. Her vitamin B12 is towards the lower end of the distribution, but normal. I will start her on iron sulfate 325 mg every other day together with a tablet of vitamin C. I will also start her on a tablet of vitamin B12 500 mcg qdaily. She will measure her weight daily. She will return to see me as an outpatient in the next 2 - 3 days. I discussed the above with the patient
--- NOTE | 2018-04-15 00:07 | DS ---
DISCHARGE SUMMARY: DATE OF ADMISSION: 04/12/18 DATE OF DISCHARGE: 04/14/18 DISCHARGE DIAGNOSES: 1. Acute right pyelonephritis. Escherichia coli sensitive to all antibiotics except for ampicillin. 2. Hzdet-dw-zcamkln renal insufficiency. 3. Anemia. 4. Thrombocytosis. SECONDARY DIAGNOSES: 1. Hypertension. 2. Hyperlipidemia. 3. Anemia of chronic disease. 4. Osteoarthritis. 5. Left renal atrophy HISTORY: Terri Guzman is a 77-year-old white female. Her presentation is documented in the admitting history and physical provided by TREY Couch, and is part of the electronic medical records. In short, she was seen in the emergency room with acute pyelonephritis on 04/08/18, sent out on Augmentin. The pain in her right kidney increased to a point where she could not cope. She returned to the emergency room where she was given good relief. Physical examination in the emergency room, temperature 97, pulse 72, respirations 18, oxygen saturation 98%, blood pressure 146/74. Her abdomen is described as nontender. Otherwise, nonfocal examination. Initial labs: White count 7.9, hemoglobin 9.6, hematocrit 29, platelets 689. Sodium 134, potassium 4.7, chloride 103, bicarbonate 20, anion gap of 11, BUN 26 , creatinine 3.01, glucose of 100, lactic acid 1.2, calcium 9.1. Normal LFTs. CRP 62.64, procalcitonin 0.2. UA: 2+ esterase. Renal ultrasound showed an atrophic left kidney and no evidence of hydronephrosis on the right side. Initial impression: Right-sided pyelonephritis, vzmif-am-xocormc renal insufficiency, history of hypertension and hyperlipidemia, and asthma. She was initially treated with analgesics, IV fluids, and transferred on to ceftriaxone. INVESTIGATIONS: At presentation, she had an elevated platelet count, which came down to 524 on the day of discharge. Anemia progressed from a hemoglobin of 9.6, hematocrit of 29 at presentation down to 8.5 and 25 on the day of discharge. Neutrophil percent was not elevated. Her kidney function improved during her hospitalization going from a creatinine of 3.01 to 2.68. This is still higher than baseline. Investigations for anemia: Iron 34, TIBC 253, percent saturation 13, transferrin 181, vitamin B12 of 295, folic acid 15.98. This patient has the anemia of chronic disease, but she may also have some iron deficiency as her transferrin saturation is so low. Her C-reactive protein came down on the day of discharge to 32.33. HOSPITAL COURSE: This is characterized by rapid improvement of her renal angle pain on the right side. Her appetite recovered. She was able to walk around independently. She had no further fevers, sweats, or chills. On the day of discharge, she is feeling much better. She has no particular symptoms. PHYSICAL EXAMINATION: Temperature 97.8, pulse 56, respirations 16, oxygen saturation 92% on room air, blood pressure 120/62. She is pale. No cyanosis, jaundice, clubbing, or adenopathy. Cardiovascular System: Pulse regular. Normal character and volume. Venous pressure not elevated. Heart sounds are normal. No added sounds or murmurs. No pedal edema. Respiratory System: Her chest was clear. Abdomen: No distension, masses, tenderness, or organomegaly. Nervous System: Alert and oriented x3. Cranial nerves II through XII are intact. Arms and legs full power, normal tone and coordination. Normal speech. ASSESSMENT AND PLAN: 1. Right-sided pyelonephritis. This is recovering. I will give her cefdinir 300 mg twice daily for 5 days. This corresponds to ceftriaxone. 2. Mmtin-ju-wtdqjqj renal insufficiency. We note that she has an atrophic left kidney. Right kidney appears to have been injured. We are watching her renal function carefully to see whether it returns to normal. She is starting on a renal failure diet. We will evaluate her remaining kidney carefully as an outpatient to evaluate for evidence of any other pathology. 3. Anemia. This is likely anemia of chronic disease and renal failure plus the anemia of an acute phase reaction plus to some extent an iron deficiency. We will give her some iron and some vitamin B12 and see if it improves. 4. Hypertension. I am holding her blood pressure meds until I see her as an outpatient. 5. She will be weighing herself daily. 6. Hyperlipidemia. She will continue her current medication. 7. Thrombocytosis. In view of the kidney injury, I am cautious about giving her any NSAID at this point. I will consider some aspirin if this does not rectify. DISCHARGE MEDICATIONS: 1. Vitamin C 500 mg q.o.d. 2. Ferrous sulfate 325 mg q.o.d. with vitamin C. 3. Cefdinir 300 mg twice daily for 5 days. 4. Amitriptyline 75 mg q.h.s. 5. Tiotropium 1 capsule inhaled daily. 6. Pravastatin 40 mg q.h.s. I am holding her lisinopril and verapamil for the moment. She will follow up as an outpatient in the next 2 to 3 days. [id number]/[facility] #: [id number] MTDD
== END 2018-04-14 13:30 | disposition home or self-care (01) | DRG 690 ==
LOC: ED 12:15 → MED 16:42 → OBSVTOIN 04-13 14:23
PROVIDERS: ADMIT Hospitalist; ATTEND Internal Medicine
DX: N10 Acute pyelonephritis (principal); N17.9 Acute kidney failure, unspecified; I12.9 Hypertensive chronic kidney disease with stage 1 through stage 4 chronic kidney disease, or unspecified chronic kidney disease; N18.3 Chronic kidney disease, stage 3 (moderate); D63.1 Anemia in chronic kidney disease; B96.20 Unspecified Escherichia coli [E. coli] as the cause of diseases classified elsewhere; D50.9 Iron deficiency anemia, unspecified; D47.3 Essential (hemorrhagic) thrombocythemia; E78.5 Hyperlipidemia, unspecified; M19.90 Unspecified osteoarthritis, unspecified site; N26.1 Atrophy of kidney (terminal); Z96.659 Presence of unspecified artificial knee joint; Z79.899 Other long term (current) drug therapy; Z88.5 Allergy status to narcotic agent; Z82.49 Family history of ischemic heart disease and other diseases of the circulatory system; F17.210 Nicotine dependence, cigarettes, uncomplicated; J45.909 Unspecified asthma, uncomplicated
CPT/HCPCS: 36415; 76775; 80048; 80053; 80076; 81003; 81015; 82570; 82607; 82668; 82746; 83010; 83540; 83550; 83605; 83690; 83735; 84145; 84300; 85025; 86140; 87040; 87086; 94640; 99284; A9270-GY; G0378; J0696; J0744; J1644; J1885; J2405

== ENCOUNTER → 2018-11-22 07:49 | Day surgery (SDC) | payer MEDICARE ==
--- NOTE | 2018-11-20 13:30 | HP ---
AMENDED REPORT NOW INCLUDES DESIGNATED COSIGNER PREOPERATIVE HISTORY AND PHYSICAL: DATE OF SURGERY/ADMISSION: 11/22/18 DATE OF OFFICE VISIT/ENCOUNTER: 11/18/18 ATTENDING SURGEON: Ladonna Mejía MD.* (DICTATED BY TREY FAUST) PROCEDURE: Right hand Dupuytren excision. HISTORY OF PRESENT ILLNESS: This is a 78-year-old female who complains of a painful mass in the palm of her right hand. It is most bothersome whenever she tries to almond grinder things. She has noticed this develop over time, but it has become more bothersome during the past 2 weeks. She would like to have it removed and has consented to proceed with surgery. The patient has stage 4 kidney failure. She is not on dialysis. She is followed by Dr. Toussaint. PAST MEDICAL HISTORY: 1. Depression/anxiety. 2. History of hypertension. 3. Hyperlipidemia. 4. Migraine headaches. 5. Chronic back pain. 6. Stage 4 kidney disease, no dialysis. PAST SURGICAL HISTORY: 1. Oophorectomy. 2. Cholecystectomy. 3. Left knee surgery, arthroscopy. 4. Lumps removed from left arm. 5. Hysterectomy. CURRENT MEDICATIONS: 1. Amitriptyline HCL 75 mg 1 tab q.h.s. 2. Fosamax 70 mg 1 tab weekly. 3. Verapamil HCL SA 240 mg daily. ALLERGIES: CODEINE causes migraine headaches and TAPE. FAMILY MEDICAL HISTORY: Hypertension and rheumatoid arthritis. SOCIAL HISTORY: The patient is retired. She is a current smoker off and on. She has smoked for several years. She reports currently smoking 3 cigarettes per day on occasion. She denies recreational drug use. She drinks alcohol on rare occasion. REVIEW OF SYSTEMS: Negative for general, cephalic, cardiovascular, respiratory , GI, , other musculoskeletal, integumentary, endocrine, neurologic, and hematologic symptoms. Infectious disease is negative for MRSA, hepatitis C, HIV. PHYSICAL EXAMINATION GENERAL: A well-developed, well-nourished, 78-year-old female, in no acute distress. VITAL SIGNS: Height 5 feet 5 inches, weight 145 pounds, pulse rate 100, and blood pressure 134/90. HEENT: Normocephalic, atraumatic. Pupils are equal, round, and reactive to light and accommodation. Extraocular movements are intact. NECK: Supple. No palpable lymph nodes. Throat is clear. PULMONARY: Lungs are clear to auscultation bilaterally. No wheezes, rales, or rhonchi. CARDIOVASCULAR: Regular rate and rhythm. S1 and S2. No murmurs, rubs or gallops. No edema. ABDOMEN: Positive bowel sounds. Soft and nontender. NEUROLOGICAL: Alert and oriented x3. Cranial nerves II through XII are intact. Sensation is intact to light touch. MUSCULOSKELETAL: On exam of her right hand, she has a Dupuytren cord in the first webspace. It is tender to palpation. She can make a fist. She has a little bit of limitation of abduction of her thumb. Neurovascular function is intact. IMPRESSION: Dupuytren cord in the right hand, first webspace. PLAN: The patient is scheduled to undergo right hand Dupuytren excision with Dr. Mejía on 11/22/18. She will return to the office 10 days postop for followup and suture removal. A prescription for [place] was e-scribed to the patient's pharmacy for postoperative pain management. TREY FAUST [id number]/[facility] #: [id number] CHERISE
[~2018-11-22 07:49] MED LIST: Acetaminophen TAB* 325 MG PO PRN; Buffered Lidocaine 1% SYRIN* 1 ML/SYRINGE INTRADERM ONE; Bupivacaine 0.5%* 50 ML VIAL ONE; Ketorolac INJ* 30 MG/ML 1 ML VIAL IV PRN; Lactated Ringers 1000 ML Bag* 1,000 ML IV SCH; Lidocaine 1% INJ* 10 MG/ML 30 ML SDV ONE; Lidocaine 2% PF * 5 ML VIAL ONE; Midazolam* 1 MG/ML 2 ML VIAL (2 MG) ONE; Naloxone* 0.4 MG/ML 1 ML VIAL IV PRN; Propofol* 10 MG/ML 20 ML BTL ONE; ceFAZolin 2 GM in NS PREMIX(*) 2 GM/100 ML BAG IVPB ONE; fentaNYL* 50 MCG/ML 2 ML VIAL (100 MCG VIAL) IV PRN; oxyCODONE TAB* 5 MG TAB PO PRN
[2018-11-22 11:32] VITALS: BP 167/96
--- NOTE | 2018-11-22 22:52 | OP ---
DATE OF OPERATION: 11/22/18 [facility] DATE OF : 40 SURGEON: Ladonna Mejía MD [employer] WOOD: TREY Rea ANESTHESIA: Local MAC. PRE-OP DIAGNOSIS: Right elbow mass and right hand Dupuytren's contracture. POST-OP DIAGNOSIS: Right elbow mass and right hand Dupuytren's contracture. OPERATIVE PROCEDURE: Removal of right elbow mass and right hand Dupuytren's contracture. ESTIMATED BLOOD LOSS: Zero. TOURNIQUET TIME: About 20 minutes. INDICATIONS FOR PROCEDURE: Terri is a 78-year-old woman who has a painful mass on the lateral aspect of her right elbow as well as a Dupuytren's contracture in the first webspace of her right hand. She presents for removal of both. DESCRIPTION OF PROCEDURE: The patient was brought to the operating room and was given a sedation anesthetic and a local infiltration a total of 10 cc of 1% plain lidocaine, 2 cc at the elbow and 8 in the palm of her right hand. The skin of her right upper extremity was prepped and draped in the usual sterile fashion. The upper extremity was exsanguinated and the tourniquet elevated to 250 mmHg. A small transverse incision was made over the elbow mass, which was proximally 1 cm in diameter. We dissected through the subcutaneous tissue bluntly with the scissors and the mass came out easily without excessive dissection. It appeared to be a lipoma. The wound was irrigated and skin edges reapproximated with 4-0 nylon suture. Next a chevron incision was made in the palm of the right hand overlying the Dupuytren's contracture elevated with skin flaps over the Dupuytren's tissue and removed it in its entirety without difficulty. The neurovascular structures were deep to the contracture tissue. The wound was irrigated and the skin edges reapproximated with 4-0 nylon suture. The wounds were dressed with Xeroform, 4x4, Webril, and an Kalin wrap. The patient tolerated the procedure well and was brought to the recovery room in good condition. [id number]/[facility] #: [id number] MTDD
== END | disposition home or self-care (01) ==
LOC: OR 07:49
PROVIDERS: ATTEND Orthopaedic Surgery
DX: M72.0 Palmar fascial fibromatosis [Dupuytren] (principal); D17.21 Benign lipomatous neoplasm of skin and subcutaneous tissue of right arm; F41.8 Other specified anxiety disorders; E78.5 Hyperlipidemia, unspecified; N18.4 Chronic kidney disease, stage 4 (severe); I12.9 Hypertensive chronic kidney disease with stage 1 through stage 4 chronic kidney disease, or unspecified chronic kidney disease; Z72.0 Tobacco use; J45.909 Unspecified asthma, uncomplicated
CPT/HCPCS: 36415; 84132; 88304; J0690; J2250; J2704